=== PATIENT | male | born 1965 | race Caucasian/White ===

== ENCOUNTER 2024-12-26 15:09 | Inpatient (IN) | payer OTHER, SELFPAY ==
--- OUTSIDE RECORDS SUMMARY | 2024-02-13 11:45 | XMS_ITS ---
Author Organization [facility] Address [address] [place] [id number] Care Team Providers Care Prisoner Classification Interviewer Name Role Phone Amber Aquino Primary Care Provider [phone] Amish Batista [phone] REASON FOR VISIT 6 mo f/u HTN & HLD Social History Sex Assigned At : Social History Observation Description Sex Assigned At Male Encounters Encounter Location Date Provider Diagnosis Main [address] [place] [id number] 02/13/2024 Amish Batista Plan Of Treatment Next Appt Details Provider Name:Amber luna, 03/29/2025 03:30:00 PM, [address] [place], [phone], Progress Notes * Josue LEYDOB: [birth year] (59 yo M)Acc No.[id number]:02/13/2024 Medical Note Patient: Azam VNICENTJosue NIEVES Provider: Camila Batista PA-C :1965 A ge:58 Y S ex:Male Date:02/13/2024 Address:[address] [place] [id number] Pcp:Amber Aquino Subjective: * Chief Complaints: * 1 . 6 mo f/u HTN & HLD. * Medical History: Objective: * Vitals: Assessment: Plan: * Treatment: * Billing Information: * Visit Code: * Procedure Codes: * Electronic signature of NICK Hinds on 12/28/2024 at 06:35 AM EDT Sign off status: Pending * Provider: Camila Batista PA-C Date: 0 02/13/2024 Generated for Stephanie calvillo/Nelda/Ashley on: 0 12/28/2024 06:35 AM EDT
--- OUTSIDE RECORDS SUMMARY | 2024-04-21 11:00 | XMS_ITS ---
Author Organization [facility] [place] Address [address] [place] [address] Care Team Providers Care Tailer In Name Role Phone Luis Smith Primary Care Provider Perfecto Sadler Unavailable [phone] Allergies Allergen (clinical drug ingredient) Drug/Non Drug Allergy documented on EMR Reaction Allergy Type Onset Date Status A-Cillin (penicillin) Unknown Drug Allergy Active REASON FOR VISIT CKD 3, HTN, Vitamin D deficiency Medications Medication SIG (Take, Route, Frequency, Duration) Notes Start Date End Date Status Lisinopril 40 MG 1 tablet Orally Once a day for 30 days Active Multi Vitamin - 1 tablet Orally Once a day for 30 day(s) Active Pravastatin Sodium 40 mg 1 tablet DAILY Active Vitamin D 25 MCG (1000 UT) 1 tablet Oral ly Once a day for 30 day(s) 02/16/2020 Active Aspirin 81 mg 1 delayed release ta blet DAILY Active Allopurinol 100 MG 1 tablet Orally Once a day for 90 days 02/16/2020 Active Social History Tobacco Use: Social History Observation Description Date Details (start date - stop date) Never Smoker NA - NA Tobacco Use/Smoking Question Answer Notes Patient is a nonsmoker Vital Signs Weight 186.6 lbs 04/21/2024 Height 5ft 6 in in 04/21/2024 Blood pressure systolic 118 mm Hg 04/21/20 24 Blood pressure diastolic 84 mm Hg 024 BMI 30.11 kg/m2 04/21/2024 Encounters Encounter Location Date Provider Diagnosis [facility] [address] [place] [phone] 04/21/2024 Perfecto Sheets Essential hypertensi on I10 ; CKD stage G3a/A1, GFR 45-59 and albumin creatinine ratio <30 mg/g N18.31 ; Microalbuminuria absent Z78.9 ; Vitamin D deficiency E55.9 ; Hyperuricemia E79.0 and Kidney stone N20.0 Assessments Encounter Date Diagnosis (ICD Code) Assessment Notes Treatment Notes Treatment Clinical Notes Section Notes 04/21/2024 Essential hypertension (ICD-10 - I10) BP at goal. 04/21/2024 CKD stage G3a/A1, GFR 45-59 and albumin creatinine ratio <30 mg/g (ICD-10 - N18.31) Renal function is very stable. Creatinine is 1.58, eGFR is 50. BP and volume status are at goal. No proteinuria present at this time. PTH is WNL. Encouraged pt to continue to increase his water intake. Will have pt discontinue Vit D supplements and decrease TUMs supplementation due to Ca level of 10.3. 04/21/2024 Microalbuminuria absent (ICD-10 - Z78.9) 04/21/2024 Vitamin D deficiency (ICD-10 - E55.9) Will discontinue Vit D supplements at this time due to Calcium level of 10.3. Also advised pt to significantly cut down on his TUMs intake due to borderline elevated calcium. He states that he takes TUMs almost daily due to heartburn, but he is not interested in an H2 gardenia at this time. 04/21/2024 Hyperuricemia (ICD-10 - E79.0) Pt no longer taking allopurinol due to not wanting to take any more medications at this time. He is working on controlling his uric acid levels with diet. He is just coming out of a Gout attack, but does not wish to restart allopurinol at this time. Will follow up uric acid level at next visit. 04/21/2024 Kidney stone (ICD-10 - N20.0) Encouraged pt to increase water consumption to 3 L per day. Plan Of Treatment Treatment Notes Assessment Notes Essential hypertension BP at goal. CKD stage G3a/A1, GFR 45-59 and albumin creatinine ratio <30 mg/g Renal function is very stable. Creatinine is 1.58, eGFR is 50. BP and volume status are at goal. No proteinuria present at this time. PTH is WNL. Encouraged pt to continue to increase his water intake. Will have pt discontinue Vit D supplements and decrease TUMs supplementation due to Ca level of 10.3. Vitamin D deficiency Will discontinue Vit D supplements at this time due to Calcium level of 10.3. Also advised pt to significantly cut down on his TUMs intake due to borderline elevated calcium. He states that he takes TUMs almost daily due to heartburn, but he is not interested in an H2 gardenia at this time. Hyperuricemia Pt no longer taking allopurinol due to not wanting to take any more medications at this time. He is working on controlling his uric acid levels with diet. He is just coming out of a Gout attack, but does not wish to restart allopurinol at this time. Will follow up uric acid level at next visit. Kidney stone Encouraged pt to inc rease water consumption to 3 L per day. Pending Test Test Name Order Date UA (URINALYSIS, COMPLETE) 04/21/2024 MAGNESIUM 04/21/2024 CBC WITH DIFF 04/21/2024 BMP (BASIC MET PANEL - W/GFR) 04/21/2024 MICROALBUMIN with ALB/CREAT RATIO, URINE (MALB)) 04/21/2024 PTH INTACT (PARATHYROID HORMONE) 024 URIC ACID 04/21/2024 VITAMIN D, 25 LEVEL (TOTAL) 04/21/2024 Next Appt Details Follow Up: 1 Year, Reason: Provider Name:Perfecto srinivasan, 04/20/2025 03:00:00 PM, [address] [place] [address], [phone], Progress Notes * Josue LEYDOB: [birth year] (58 yo M)Acc No.[id number]:04/21/2024 Progress Note Patient: Azam Josue MOE Provider: SATYA Ulloa :1965 A ge:58 Y S ex:Male Date:04/21/2024 Address:[address] [place], [place] [phone] Pcp:Luis Smith Check In:02:59 PM ESTCheck O ut:03:25 PM EST Subjective: * Chief Complaints: * C KD 3HTNVitamin D deficiency * HPI: G eneral: Pt presents for a one year follow-up of CKD and HTN. Pt states that he has been feeling well and has no new concerns at this visit. Pt states that he is just getting over a Gout attack. He stopped taking his allopurinol on his own due to wanting to decrease his overall medication intake, and now he is working on managing his Gout with diet. He does not wish to go back on allopurinol at this time. He also states that he takes TUMs almost daily due to heartburn, but is not interested in an H2 gardenia or any other medications at this time. Pt states that he is otherwise feeling well. * ROS: G eneral/Constitutional: Weight Change > 5 pounds in last 6 months d enies. L ightheadedness d enies. C ardiovascular: Orthopnea d enies. S welling of extremities d enies. D yspnea on exertion d enies. S hortness of breath d enies. R espiratory: Difficulty breathing d enies. C ough d enies. ? G astrointestinal: Decreased appetite d enies. N ausea d enies. V omiting d enies. G enitourinary: Dysuria d enies . H ematuria d enies. U rgency?denies. M usculoskeletal: Back pain d enies. A rthralgia d enies. ? S kin: Loss of sensation/numbness d enies. R alondra d enies.? N eurologic: Weakness D enies. D izziness d enies. ? P sychiatric: Insomnia d enies. A nxiety d enies. ? E ndocrine: Polydipsia d enies. P olyuria d enies. ? H ematology: Blood clots d enies. B lood disorder d enies. ? A ll other review of systems negative at this time. * Active Problem List N18.3 Chronic kidney disea se, stage III (moderate) Modified On:02/21/2021W/U Status:confirmed I10 Essential hypertensi on Modified On:04/23/2023W/U Status:confirmed N20.0 Kidney stone on left side Modified On:02/16/2020/U Status:confirmed N20.0 Kidney stone Modified On:04/23/2023/U Status:confirmed N18.3 CKD (chronic kidney disease) stage 3, GFR 30-59 ml/min Modified On:02/21/2021/U Status:confirmed E55.9 Vitamin D deficiency Modified On:04/23/2023/U Status:confirmed N18.31 CKD stage G3a/A1, GF R 45-59 and albumin creatinine ratio <30 mg/g Modified On:04/23/2023/U Status:confirmed * Medical History: * Surgical History: H istory of tonsillectomy * Hospitalization/Major Diagno stic Procedure: k idney stones no stay Er Visit * Family History: F ather: , diagnosed with Diabetes mellitus without mention of complication, type II or unspecified type, not stated as uncontrolled, Other malignant neoplasm of unspecified site. M other: alive. M igrated Family History:: Family history of hyperlipidemia;Father ;. * Social History: T obacco Use: T obacco Use/Smoking P atient is a n onsmoker * Medications: T akingAllopurinol 100 MG Tablet 1 tablet Orally Once a day Aspirin 81 mg delayed release tablet 1 delayed release tablet DAILY Lisinopril 40 MG Tablet 1 tablet Orally Once a day Multi Vitamin - Tablet 1 tablet Orally Once a day Pravastatin Sodium 40 mg tablet 1 tablet DAILY Vitamin D 25 MCG (1000 UT) Tablet 1 tablet Orally Once a day Medication List reviewed and reconciled with the patientTaking Allopurinol 100 MG Tablet 1 tablet Orally Once a day Taking Aspirin 81 mg delayed release tablet 1 delayed release tablet DAILY Taking Lisinopril 40 MG Tablet 1 tablet Orally Once a day Taking Multi Vitamin - Tablet 1 tablet Orally Once a day Taking Pravastatin Sodium 40 mg tablet 1 tablet DAILY Taking Vitamin D 25 MCG (1000 UT) Tablet 1 tablet Orally Once a day Medication List reviewed and reconciled with the patient * Allergies: A -Cillin (penicillin): Allergyno[Allergies Verified] Objective: * Vitals: W t:186.6lbs, Ht: 5ft 6 in, BP:118/84mm Hg, BMI:30.11Index, Ht-cm: 167.64 cm, Wt- k.64 kg. * Examination: G eneral Examinations: GENERAL APPEARANCE: i n no acute distress, well developed, well nourished. ENT: n ormocephalic, atraumatic. ORAL CAVITY: m ucosa moist. NECK: n sharita supple, no jugular venous distention. LUNGS: S ymmetrical/respiration rhythm and depth normal, clear to auscultation bilaterally. CARDIO: r egular rate and rhythm, no murmurs, S1, S2 normal. ABDOMEN: s oft, nontender Bowel sounds normal. MUSCULOSKELETAL G ait and station normal, no swelling or deformity. SKIN: w arm and dry, no rashes. EXTREMITIES: n o clubbing, cyanosis, or edema. NEUROLOGIC: a lert and oriented, no focal deficit. PSYCH: a lert, oriented, judgement and insight good, speech clear. Assessment: * Assessment: 1. C KD stage G3a/A1, GFR 45-59 and albumin creatinine ratio <30 mg/g - N18.31 (Primary)?2. E ssential hypertension - I10 3 . M icroalbuminuria absent - Z78.9 4 . V itamin D deficiency - E55.9 5 . H yperuricemia - E79.0 6 . K colby stone - N20.0 Plan: * Treatment: 2. E ssential hypertension Notes: BP at goal. 3. V itamin D deficiency Notes: Will discontinue Vit D supplements at this time due to Calcium level of 10.3. Also advised pt to significantly cut down on his TUMs intake due to borderline elevated calcium. He states that he takes TUMs almost daily due to heartburn, but he is not interested in an H2 gardenia at this time. 4. H yperuricemia Notes: Pt no longer taking allopurinol due to not wanting to take any more medications at this time. He is working on controlling his uric acid levels with diet. He is just coming out of a Gout attack, but does not wish to restart allopurinol at this time. Will follow up uric acid level at next visit. 5. Jyotsna larkin Notes: Encouraged pt to increase water consumption to 3 L per day. * Procedure Codes: * Follow Up: 1 Year * * Electronically signed by Max Sheets , DESIRAE-ELECTRONIC FIELD SERVICE ENGINEER, NON GARMENT SEWING MACHINE OPERATOR.ELECTRONIC FIELD SERVICE [id number] on 04/21/2024 at 05:05 PM EST Sign off status: Completed Visit Status: C HK (Check Out) true * Provider: Valerio Sheets APRN-ABE Date: 06/21/2023 Generated for Stephanie calvillo/Dick on: 0 12/28/2024 06:34 AM EDT History and Physical Notes * HPI (History of Present Illness) Category Sub-Category Detail Notes Category Not es General Pt presents for a one year follow-up of CKD and HTN. Pt states that he has been feeling well and has no new concerns at this visit. Pt states that he is just getting over a Gout attack. He stopped taking his allopurinol on his own due to wanting to decrease his overall medication intake, and now he is working on managing his Gout with diet. He does not wish to go back on allopurinol at this time. He also states that he takes TUMs almost daily due to heartburn, but is not interested in an H2 gardenia or any other medications at this time. Pt states that he is otherwise feeling well. Examination Category Sub-Category Detail Notes Category Not es General Examinations GENERAL APPEARANCE: in no a cute distress, well developed, well nourished ENT: normocephalic, atrau matic NECK: neck supple, no jugu lar venous distention CARDIO: regular rate and rhy thm, no murmurs, S1, S2 normal LUNGS: Symmetrical/respirat ion rhythm and depth normal, clear to auscultation bilaterally ABDOMEN: soft, nontender Bowel sounds normal NEUROLOGIC: alert and oriented, no focal deficit SKIN: warm and dry, no halie hes EXTREMITIES: no clubbing, cyanosi s, or edema MUSCULOSKELETAL: Gait and station nor mal, no swelling or deformity PSYCH: alert, oriented, melita gement and insight good, speech clear ORAL CAVITY: mucosa moist
[2024-12-26 15:12] VITALS: BP 134/88; PULSE 70; TEMP 36.4; O2SAT 97; BMI 26.6
--- NOTE | 2024-12-26 15:32 | CT_ITS ---
[address] [address] Patient Name: LUCIANO TREADWELL MRN: [id number] date: 1965 Sex: M Assigned Patient Location: ER Current Patient Location: .[facility] Accession/Order Number: [id number] Exam Date: 12/26/2024 16:15 Report Date: 12/26/2024 16:21 At the request of: ROSA JOVEL NP Procedure: CT abdomen pelvis wo con CT abdomen pelvis wo con 12/26/2024 3:51 PM SIGNS AND SYMPTOMS: Left flank pain, history of kidney stones TECHNIQUE: Multidetector ct axial images of the abdomen and pelvis were obtained without IV contrast. Multiplanar reformats were performed and reviewed to further define anatomy and possible pathology. CT was performed with one or more of the following dose reduction techniques: Automated exposure control, adjustment of the mA and/or kV according to patient size, or use of iterative reconstruction technique. COMPARISON: 01/02/2020 FINDINGS: Lower Chest: There is linear scarring in the left lung base. ABDOMEN: Liver: Within normal limits. Bile Ducts: Normal caliber. Gallbladder: No calcified gallstones. Normal caliber wall. Pancreas: Within normal limits. Spleen: Within normal limits. Adrenals: Within normal limits. Kidneys: Multiple radiodense renal stones are present measuring 6 mm in greatest dimension on the right and 4 mm in greatest dimension on the left. There is no hydronephrosis. Pelvis: Reproductive Organs: No pelvic masses. Ureters: There is a 4 mm stone in the distal left ureter just above the left ureterovesical junction. There is fat stranding along a mildly dilated ureter above this. Bladder: Within normal limits. Bowel: Uncomplicated colonic diverticula are noted. There is a normal appendix in the right lower quadrant. No bowel obstruction. Mesenteric Lymph Nodes: No enlarged mesenteric lymph nodes. Peritoneum: No ascites or free air, no fluid collection. Vessels: within normal limits Retroperitoneum: Within normal limits. Abdominal Wall: Within normal limits. Bones: Degenerative changes are noted in the lumbar spine and sacroiliac joints. CT/CT abdomen pelvis wo con IMPRESSION: No bowel obstruction. There is no hydronephrosis. There is a 4 mm stone in the distal left ureter just above the left ureterovesical junction. There is fat stranding along a mildly dilated ureter above this. Uncomplicated colonic diverticula are noted. Impression dictated by: Phong Pérez M.D. 12/26/2024 4:21 PM Dictation Location: [place] [address] Electronically authenticated by: [id number] Y Date: 12/26/2024 16:21
[2024-12-26 15:40] LABS: Hematocrit 44.2 % (42.0-54.0); Hemoglobin 15.0 g/dL (14.0-18.0); Immature Granulocytes Abs Auto 0.08 10^3/uL (0.00-0.03); Immature Granulocytes Pct Auto 0.6 % (0.0-0.5); Lymphocytes Absolute Auto 1.2 10^3/uL (1.2-3.8); Mean Corpuscular HGB Conc 33.9 g/dL (29.9-35.2); Mean Corpuscular Hemoglobin 30.1 pg (25.9-34.0); Mean Corpuscular Volume 88.6 fL (80.0-94.0); Platelet Count 259 10^3/uL (150-450); Red Blood Count 4.99 10^6/uL (4.70-6.10); White Blood Count 14.1 10^3/uL (4.0-11.0)
[2024-12-26 15:41] LABS: Glucose Urine UA NEGATIVE (NEGATIVE)
[2024-12-26 15:54] LABS: Alanine Aminotransferase 39 U/L (16-63); Albumin Globulin Ratio 1.3; Albumin Level 3.9 g/dL (3.4-5.0); Alkaline Phosphatase 68 U/L (46-116); Anion Gap 17.9; Aspartate Amino Transferase 19 U/L (15-37); Blood Urea Nitrogen 24.0 mg/dL (7.0-18.0); Calcium 9.0 mg/dL (8.5-10.1); Carbon Dioxide 23.3 mmol/L (21.0-32.0); Chloride 101 mmol/L (98-107); Estimated GFR (African America 35 (>=60 mL/min/1.73m^2); Estimated GFR (Non-African Ame 29 (>=60 mL/min/1.73m^2); Globulin 3.0 g/dL; Glucose 114 mg/dL (74-106); Potassium 4.2 mmol/L (3.5-5.1); Sodium 138 mmol/L (136-145); Total Protein 6.9 g/dL (6.4-8.2)
--- NOTE | 2024-12-26 15:55 | ED.GENADUL1 ---
HPI HPI - General Adult General Chief complaint: Abdominal Pain Stated complaint: URINARY ISSUES, L SIDED ABDOMINAL PAIN Time Seen by Provider: 12/26/24 15:28 Source: patient Mode of arrival: walk-in History of Present Illness HPI narrative: Patient is a 59-year-old male who presents to the emergency department today for evaluation concerns for flank and abdominal pain. He states he woke up this morning with pain to his left flank region that radiates to the left side of his abdomen. He denies any pain on arrival to the ER. He states he has a history of kidney stones reports his vertigo similar to that. He reports when the pain is present he does have some nausea without vomiting. No urinary symptoms. Additionally no fever/chills, chest pain, shortness of breath. Related Data Home Medications ?Medication ?Instructions ?Recorded ?Confirmed lisinopril 40 mg tablet 40 mg PO DAILY 12/26/24 12/26/24 pravastatin 80 mg tablet 80 mg PO DAILY 12/26/24 12/26/24 Allergies Allergy/AdvReac Type Severity Reaction Status Date / Time Penicillins Allergy Severe Hives Verified 12/26/24 15:[address] [facility] Medical History (Updated 12/26/24 @ 17:25 by Gloria Mcgiure NP) Stage 3 chronic kidney disease ?N18.30 - Chronic kidney disease, stage 3 unspecified (ICD-10) Social History Little interest or pleasure in doing things: not at all Feeling down, depressed, or hopeless: not at all Exam Narrative Exam Narrative: Constituational: Awake/ alert, no apparent distress, well hydrated HENMT: normocephalic, external ears normal, moist oral mucous membranes and oropharynx normal Eyes: EOMI and conjunctivae normal Neck: ROM intact Chest: inspection of chest normal Respiratory: Normal respiratory effort, clear to auscultation bilaterally Cardio: regular rate and regular rhythm GI: soft to palpation and non-tender Back: nontender, no CVA tenderness MSK: ROM intact, +NVI Skin: no rashes or petechiae Neuro: no focal deficits Psych: mental status grossly normal Constitutional Vital Signs, click to edit/add: Last Vital Signs Temp 97.5 F L 12/26/24 15:12 Pulse 70 12/26/24 15:12 Resp 18 12/26/24 15:12 BP 134/88 12/26/24 15:12 Pulse Ox 97 12/26/24 15:12 O2 Del Method Room Air 12/26/24 15:12 Course Vital Signs Vital signs: Vital Signs Temperature 97.5 F L 12/26/24 15:12 Pulse Rate 70 12/26/24 15:12 Respiratory Rate 18 12/26/24 15:12 Blood Pressure 134/88 12/26/24 15:12 Pulse Oximetry 97 12/26/24 15:12 Oxygen Delivery Method Room Air 12/26/24 15:12 Temperature 97.5 F L 12/26/24 15:12 Pulse Rate 70 12/26/24 15:12 Respiratory Rate 18 12/26/24 15:12 Blood Pressure 134/88 12/26/24 15:12 Pulse Oximetry 97 12/26/24 15:12 Oxygen Delivery Method Room Air 12/26/24 15:12 Medical Decision Making MDM Narrative Medical decision making narrative: Patient is a nontoxic-appearing 59-year-old male who presented to the emergency department today for evaluation concerns for left-sided flank and abdominal pain with history of kidney stones with reported pain feeling similar to kidney stones in the past. Initial examination vital signs overall stable. No acute abdominal findings on exam. And patient has been pain-free since arrival to the ER. Labs noted for mild leukocytosis with WBCs 14 otherwise no significant anemia or thrombocytopenia. Electrolytes including hepatic function stable. Renal function with elevated creatinine of 2.33. In discussing this with the patient he is very confused and does not believe he has any history of kidney disease however endorses he sees a planning associate out of [place]. Patient was able to pull up labs from [facility] with most recent lab work from 04/07/25 with noted creatinine 1.5, BUN 27 at that time. Historically patient is on lisinopril and there is some question if there is hydrochlorothiazide in conjunction with the lisinopril which the patient is not able to answer. CT imaging of abdomen and pelvis does show 4 mm left kidney stone above the UVJ with a mildly dilated ureter. UA is negative for UTI. Patient was reevaluated multiple times and had no significant changes in condition. He continues to be pain-free and well-appearing in addition to hemodynamically stable. Clinical impression kidney stone and IVAN. Did speak with Dr. Weinstein (Urology) [phone] regarding patient's condition, labs, image results, treatments provided by the emergency department recommends admit patient for IVAN and to hydrate and reevaluate renal function. Urology to follow along and decide if procedure necessary tomorrow vs outpatient follow up. Subsequently spoke with Dr. Saenz (hospitalist) [phone]. The patient's condition, labs, image results, treatments provided by the emergency department, and recommendations from urology -> accepts patient for admission. Discussed the above findings and recommendations with the patient. He additionally is agreeable with the plan to be admitted for further care of the above. Medical Records Medical records reviewed: Yes I reviewed the patient's medical records Lab Data Lab results reviewed: Yes I reviewed the patient's lab results Labs: Lab Results 12/26/24 12/26/24 Range/Units 15:25 15:30 WBC 14.1 H (4.0-11.0) 10^3/uL RBC 4.99 (4.70-6.10) 10^6/uL Hgb 15.0 (14.0-18.0) g/dL Hct 44.2 (42.0-54.0) % MCV 88.6 (80.0-94.0) fL MCH 30.1 (25.9-34.0) pg MCHC 33.9 (29.9-35.2) g/dL RDW 13.1 (11.0-15.0) % Plt Count 259 (150-450) 10^3/uL MPV 10.1 (9.5-13.5) fL Neut % (Auto) 82.3 H (43.0-75.0) % Lymph % (Auto) 8.1 L (20.5-60.0) % [place] % (Auto) 7.3 (1.7-12.0) % Eos % (Auto) 1.3 (0.9-7.0) % Baso % (Auto) 0.4 (0.2-2.0) % Neut # (Auto) 11.6 H (1.4-6.5) 10^3/uL Lymph # (Auto) 1.2 (1.2-3.8) 10^3/uL [place] # (Auto) 1.0 H (0.3-0.8) 10^3/uL Eos # (Auto) 0.2 (0.0-0.7) 10^3/uL Baso # (Auto) 0.1 (0.0-0.1) 10^3/uL Abs Immat Gran (auto) 0.08 H (0.00-0.03) 10^3/uL Imm/Tot Granulo (auto) 0.6 H (0.0-0.5) % Sodium 138 (136-145) mmol/L Potassium 4.2 (3.5-5.1) mmol/L Chloride 101 (98-107) mmol/L Carbon Dioxide 23.3 (21.0-32.0) mmol/L Anion Gap 17.9 BUN 24.0 H (7.0-18.0) mg/dL Creatinine 2.33 H (0.70-1.30) mg/dL Est GFR ( Amer) 35 L (>=60 mL/min/1.73m^2) Est GFR (Non-Af Amer) 29 L (>=60 mL/min/1.73m^2) BUN/Creatinine Ratio 10.3 Glucose 114 H (74-106) mg/dL Calcium 9.0 (8.5-10.1) mg/dL Total Bilirubin 0.3 (0.2-1.0) mg/dL AST 19 (15-37) U/L ALT 39 (16-63) U/L Alkaline Phosphatase 68 (46-116) U/L Total Protein 6.9 (6.4-8.2) g/dL Albumin 3.9 (3.4-5.0) g/dL Globulin 3.0 g/dL Albumin/Globulin Ratio 1.3 Urine Color Lt. yellow (YELLOW) Urine Clarity Clear (CLEAR) Urine pH 6.0 (5.0-9.0) Ur Specific [place] 1.010 (1.005-1.025) Urine Protein Negative (NEG/TRACE) mg/dL Urine Glucose (UA) Negative (NEGATIVE) mg/dL Urine Ketones Negative (NEGATIVE) mg/dL Urine Occult Blood Moderate A (NEGATIVE) Urine Nitrite Negative (NEGATIVE) Urine Bilirubin Negative (NEGATIVE) Urine Urobilinogen 0.2 (0.2-1.0) EU/dL Ur Leukocyte Esterase Negative (NEGATIVE) Urine RBC 5-10 A (0-2) #/HPF Urine WBC 0-2 A (NONE SEEN) #/HPF Ur Squamous Epith Cells Rare (NONE/RARE) #/LPF Urine Crystals None seen (None Seen) #/HPF Urine Bacteria Trace A (NONE SEEN) #/HPF Urine Casts None seen (NONE SEEN) #/LPF Urine Mucus Trace A (NONE SEEN) Ur Culture Indicated? No Imaging Data CT scan - abdomen: Attestation: I have reviewed the pertinent imaging results. Radiologist's impression: ITS Impressions Abdomen/Pelvis CT 12/26/24 15:32 IMPRESSION: No bowel obstruction. There is no hydronephrosis. There is a 4 mm stone in the distal left ureter just above the left ureterovesical junction. There is fat stranding along a mildly dilated ureter above this. Uncomplicated colonic diverticula are noted. Impression dictated by: Phong Pérez M.D. 12/26/2024 4:21 PM Dictation Location: [place] [address] Electronically authenticated by: [id number] Y Date: 12/26/2024 16:21 Discharge Plan Discharge Patient Disposition: Still a Patient
[2024-12-26 15:59] LABS: Cast Seen? NONE SEEN #/LPF (NONE SEEN); Crystals Seen? None Seen #/HPF (None Seen); Urine Culture Indicated NO
[2024-12-26] MEDS: 0.9 % SODIUM CHLORIDE 1,000 ML 1000 ML IV (18:14)
[2024-12-26 19:29] VITALS: BP 136/89; PULSE 64; TEMP 36.6; O2SAT 96; BMI 30.3
[2024-12-26] MEDS: LEVOFLOXACIN 500 MG TABLET 250 MG PO (20:36)
[2024-12-26] MEDS: 0.9 % SODIUM CHLORIDE 1,000 ML 150 ML IV (20:36)
[2024-12-26] MEDS: TAMSULOSIN HCL 0.4 MG CAPSULE PO (20:36)
[2024-12-26] MEDS: ACETAMINOPHEN 325 MG TABLET 650 MG PO (20:46)
[2024-12-27] VITALS: BP 143/86; PULSE 72; TEMP 36.3; O2SAT 93
[2024-12-27] MEDS: ACETAMINOPHEN 325 MG TABLET 650 MG PO (01:24)
[2024-12-27] MEDS: 0.9 % SODIUM CHLORIDE 1,000 ML 150 ML IV (03:23)
[2024-12-27 04:00] VITALS: BP 127/80; PULSE 73; TEMP 36.6; O2SAT 95
[2024-12-27 06:57] LABS: Hematocrit 41.8 % (42.0-54.0); Hemoglobin 13.7 g/dL (14.0-18.0); Immature Granulocytes Abs Auto 0.05 10^3/uL (0.00-0.03); Immature Granulocytes Pct Auto 0.5 % (0.0-0.5); Lymphocytes Absolute Auto 1.2 10^3/uL (1.2-3.8); Mean Corpuscular HGB Conc 32.8 g/dL (29.9-35.2); Mean Corpuscular Hemoglobin 29.2 pg (25.9-34.0); Mean Corpuscular Volume 89.1 fL (80.0-94.0); Platelet Count 216 10^3/uL (150-450); Red Blood Count 4.69 10^6/uL (4.70-6.10); White Blood Count 10.5 10^3/uL (4.0-11.0)
[2024-12-27 07:16] LABS: Anion Gap 16.6; Blood Urea Nitrogen 30.0 mg/dL (7.0-18.0); Calcium 8.1 mg/dL (8.5-10.1); Carbon Dioxide 21.6 mmol/L (21.0-32.0); Chloride 107 mmol/L (98-107); Creatine Kinase 59 U/L (39-308); Estimated GFR (African America 23 (>=60 mL/min/1.73m^2); Estimated GFR (Non-African Ame 19 (>=60 mL/min/1.73m^2); Glucose 109 mg/dL (74-106); Potassium 4.2 mmol/L (3.5-5.1); Sodium 141 mmol/L (136-145)
[2024-12-27 07:50] VITALS: BP 155/89; PULSE 80; TEMP 36.4; O2SAT 95
[2024-12-27] MEDS: LEVOFLOXACIN 500 MG TABLET 250 MG PO (08:17)
[2024-12-27] MEDS: TAMSULOSIN HCL 0.4 MG CAPSULE PO (08:17)
--- NOTE | 2024-12-27 09:07 | PM.HP ---
HPI H&P: HPI History of Present Illness Chief complaint: URINARY ISSUES, L SIDED ABD PAIN, IVAN, KIDNEY STON Narrative: Mr. Ley is a 59-year-old gentleman who came in with left flank pain. Patient was found to have 4 mm left ureteral stone with hydroureter. Patient also was found to have an element of kidney failure. Patient has had CKD. Unknown baseline up until he showed up today on his iPhone today. His baseline creatinine is 1.56 in March 2024. Emergency room physician had communicated with urologist Dr. Main who recommended admission to [place] for IV fluid infusion and monitoring of his kidney function. This morning his kidney function is worse. I spoke with Dr. Main who is recommending patient to have cystoscopy and stent. This could not be done at [place] this Saturday therefore patient will be transferred to [facility] to have the procedure done this afternoon. Patient denies any chest pain, cough or congestion. Opioid HPI Opioid Management Most Recent Pain and Opioid Data: Last Pain Scale 4 Today, 07:51 Last Pain Assessment 12/26/24, 21:00 Last MAR Pain Assessment 12/26/24, 20:46 Last ORT Total Score 0 12/26/24, 19:29 Last ORT Risk Category Low Risk 12/26/24, 19:29 Review of Systems ROS Status of ROS 10 or more systems reviewed and unremarkable except as noted in history and below [facility] Medical History (Updated 12/27/24 @ 09:09 by Marian Saenz MD) Hyperlipidemia ?E78.5 - Hyperlipidemia, unspecified (ICD-10) Hypertension ?I10 - Essential (primary) hypertension (ICD-10) Stage 3 chronic kidney disease ?N18.30 - Chronic kidney disease, stage 3 unspecified (ICD-10) Surgical History (Updated 12/26/24 @ 19:39 by Katja Borrego RN) Hx of tonsillectomy ?Z90.89 - Acquired absence of other organs (ICD-10) Family History (Updated 12/26/24 @ 19:40 by Katja Borrego RN) Father Family history of cancer Family history of diabetes mellitus Family history of myocardial infarction Social History (Updated 12/26/24 @ 19:41 by Katja Borrego RN) Within the past year, how often did you have a drink containing alcohol: monthly or less Within the past year, how many standard drinks containing alcohol did you have on a typical day: 1 or 2 Within the past year, how often did you have six or more drinks on one occasion: never Total score: 0 Score interpretation: A score less than 4 is consistent with normal alcohol consumption. Smoking status: Never smoker Non-prescribed substance use: denies use Highest level of school completed/degree received: some college, no degree Are you now , , , , never or living with a partner: In a typical week, how many times do you talk on the telephone with family, friends, or neighbors: 3 or more times per week How often do you get together with friends or relatives: 3 or more times per week Little interest or pleasure in doing things: not at all Feeling down, depressed, or hopeless: not at all Feel stressed/tense/nervous/anxious/difficulty sleeping: not at all Do you think of yourself as: straight/heterosexual Gender Identity: male Meds Home Medications and Allergies Home Medications ?Medication ?Instructions ?Recorded ?Confirmed ?Type lisinopril 40 mg tablet 40 mg PO DAILY 12/26/24 12/26/24 History pravastatin 80 mg tablet 80 mg PO DAILY 12/26/24 12/26/24 History Allergies Allergy/AdvReac Type Severity Reaction Status Date / Time Penicillins Allergy Severe Hives Verified 12/26/24 15:17 Exam Narrative Exam Narrative: [pt is awake and alert. oriented to place, time and person HEENT: [place] conjunctiva and NL buccal mucosa Neck: Supple, no tenderness Endocrine: No Thyromegaly. Vascular: No JVD or carotid bruit. Lymphatic: No cervical lymphadenopathy. Chest: CTA no DTP. Heart RRR, no extra sound or murmur. Abd: Soft, no tenderness, no rebound and no rigidity. Increase abd girth therefore clinically I could not exclude the possibility of intra abd mass or organomegaly. Mild tenderness in the left flank. LE: No cyanosis or clubbing, no varices or edema. Neuro: A A O. Nl speech, comprehension and attention. Nl and symetrical motor and tone examination through out. []] Constitutional Vital Signs, click to edit/add: Last Vital Signs Temp 97.6 F 12/27/24 07:50 Pulse 80 12/27/24 07:50 Resp 20 12/27/24 07:50 BP 155/89 H 12/27/24 07:50 Pulse Ox 95 12/27/24 07:50 O2 Del Method Room Air 12/27/24 07:50 Results Labs Labs: Short CBC 12/26/24 12/27/24 Range/Units 15:30 06:30 WBC 14.1 H 10.5 (4.0-11.0) 10^3/uL Hgb 15.0 13.7 L (14.0-18.0) g/dL Hct 44.2 41.8 L (42.0-54.0) % Plt Count 259 216 (150-450) 10^3/uL BMP 12/26/24 12/27/24 15:30 06:30 Sodium 138 141 Potassium 4.2 4.2 Chloride 101 107 Carbon Dioxide 23.3 21.6 BUN 24.0 H 30.0 H Creatinine 2.33 H 3.40 H Glucose 114 H 109 H Calcium 9.0 8.1 L Cardiac Enzymes 12/27/24 Range/Units 06:30 Total Creatine Kinase 59 (39-308) U/L Liver Function 12/26/24 Range/Units 15:30 Total Bilirubin 0.3 (0.2-1.0) mg/dL AST 19 (15-37) U/L ALT 39 (16-63) U/L Alkaline Phosphatase 68 (46-116) U/L Albumin 3.9 (3.4-5.0) g/dL Urine 12/26/24 Range/Units 15:25 Urine Color Lt. yellow (YELLOW) Urine Clarity Clear (CLEAR) Urine pH 6.0 (5.0-9.0) Ur Specific [place] 1.010 (1.005-1.025) Urine Protein Negative (NEG/TRACE) mg/dL Urine Glucose (UA) Negative (NEGATIVE) mg/dL Assessment and Plan Assessment and Plan (1) IVAN (acute kidney injury): (2) Calculus of kidney: (3) CKD (chronic kidney disease): Plan Acute on chronic kidney failure. Baseline creatinine is 1.56 in March 2024. Patient follows up with nephrology once a year Obstructing left ureteral stone with hydroureter Patient is on lisinopril 40 mg daily at home which may be contributing to his acute on chronic kidney failure. Patient did not receive lisinopril here in the hospital Patient is on pravastatin 80 mg daily but his CPK is normal. No evidence of rhabdomyolysis causing kidney failure Baseline creatinine 1.54 in March 2024. Patient follows up with nephrology once a year Acute component could be caused by obstructing left ureteral stone UA showed few RBC and WBC. Kidney function is worse this morning despite aggressive IV fluid infusion overnight. Patient had received normal saline at 150 an hour since admission to the floor. Urologist Dr. Main is recommending cystoscopy and stent. Hopefully that will improve his kidney function. This could not be done here at [place] therefore patient will be transferred to [facility] to have this procedure done this afternoon. Patient will be seen by urology, nephrology and hospitalist there.
--- NOTE | 2024-12-27 09:12 | PM.DS1 ---
DS: Providers Provider Date of admission: 12/26/24 19:17 Primary care physician: Amber Aquino NP Consults: 12/26/24 20:03 Consult to Urology Routine Consulting Provider: Josh King Reason for consultation: Ureter stone DS: Diagnosis Discharge Diagnosis (1) IVAN (acute kidney injury): (2) Calculus of kidney: (3) CKD (chronic kidney disease): Plan As listed above and others that are not listed DS: Summary Hospital Course Hospital Course: Mr. Ley is a 59-year-old gentleman who came in with left flank pain and was found to have the following Acute on chronic kidney failure. Baseline creatinine is 1.56 in March 2024. Patient follows up with nephrology once a year Obstructing left ureteral stone with hydroureter Patient is on lisinopril 40 mg daily at home which may be contributing to his acute on chronic kidney failure. Patient did not receive lisinopril here in the hospital Patient is on pravastatin 80 mg daily but his CPK is normal. No evidence of rhabdomyolysis causing kidney failure Baseline creatinine 1.54 in March 2024. Patient follows up with nephrology once a year Acute component could be caused by obstructing left ureteral stone UA showed few RBC and WBC. Kidney function is worse this morning despite aggressive IV fluid infusion overnight. Patient had received normal saline at 150 an hour since admission to the floor. Urologist Dr. Main is recommending cystoscopy and stent. Hopefully that will improve his kidney function. This could not be done here at [place] therefore patient will be transferred to [facility] to have this procedure done this afternoon. Patient will be seen by urology, nephrology and hospitalist there. Time Spent with Patient Time attestation: Total time spent providing and/or coordinating discharge services: Exam Constitutional Vital Signs, click to edit/add: Last Vital Signs Temp 97.6 F 12/27/24 07:50 Pulse 80 12/27/24 07:50 Resp 20 12/27/24 07:50 BP 155/89 H 12/27/24 07:50 Pulse Ox 95 12/27/24 07:50 O2 Del Method Room Air 12/27/24 07:50 DS: Data Data Completed and Pending Labs on day of discharge: Labs from last 24 hours 12/27/24 12/26/24 12/26/24 06:30 15:30 15:25 WBC 10.5 14.1 H RBC 4.69 L 4.99 Hgb 13.7 L 15.0 Hct 41.8 L 44.2 MCV 89.1 88.6 MCH 29.2 30.1 MCHC 32.8 33.9 RDW 13.1 13.1 Plt Count 216 259 MPV 10.2 10.1 Neut % (Auto) 77.8 H 82.3 H Lymph % (Auto) 11.7 L 8.1 L [place] % (Auto) 7.1 7.3 Eos % (Auto) 2.6 1.3 Baso % (Auto) 0.3 0.4 Neut # (Auto) 8.2 H 11.6 H Lymph # (Auto) 1.2 1.2 [place] # (Auto) 0.7 1.0 H Eos # (Auto) 0.3 0.2 Baso # (Auto) 0.0 0.1 Abs Immat Gran (auto) 0.05 H 0.08 H Imm/Tot Granulo (auto) 0.5 0.6 H Sodium 141 138 Potassium 4.2 4.2 Chloride 107 101 Carbon Dioxide 21.6 23.3 Anion Gap 16.6 17.9 BUN 30.0 H 24.0 H Creatinine 3.40 H 2.33 H Est GFR ( Amer) 23 L 35 L Est GFR (Non-Af Amer) 19 L 29 L BUN/Creatinine Ratio 8.8 10.3 Glucose 109 H 114 H Calcium 8.1 L 9.0 Total Bilirubin 0.3 AST 19 ALT 39 Alkaline Phosphatase 68 Total Creatine Kinase 59 Total Protein 6.9 Albumin 3.9 Globulin 3.0 Albumin/Globulin Ratio 1.3 Urine Color Lt. yellow Urine Clarity Clear Urine pH 6.0 Ur Specific [place] 1.010 Urine Protein Negative Urine Glucose (UA) Negative Urine Ketones Negative Urine Occult Blood Moderate A Urine Nitrite Negative Urine Bilirubin Negative Urine Urobilinogen 0.2 Ur Leukocyte Esterase Negative Urine RBC 5-10 A Urine WBC 0-2 A Ur Squamous Epith Cells Rare Urine Crystals None seen Urine Bacteria Trace A Urine Casts None seen Urine Mucus Trace A Ur Culture Indicated? No Discharge Plan Discharge Disposition: [facility]
[2024-12-27] MEDS: OXYCODONE HCL 5 MG TABLET PO (09:21)
--- NOTE | 2024-12-27 09:38 | PM.EN ---
Event Note Event Note: I called my colleague Dr. St and discussed the case with him. He excepted him to be admitted at [facility] under his care to facilitate urological intervention.
--- NOTE | 2024-12-27 10:32 | PC.NURSE ---
Report called to Silvia RICHARDS at [facility] regarding transfer. Informed ambulance pharmacy picking technician scheduled for 11:00 am
--- OUTSIDE RECORDS SUMMARY | 2024-12-28 06:35 | XMS_ITS | Patient Health Record ---
Author Organization [facility] vices Address [address] [place] [address] [address] [place] [place] [id number] Care Team Providers Care Talent Consultant Name Role Phone Amber Aquino Primary Care Provider Amish Batista Unavailable [phone] Allergies Allergen (clinical drug ingredient) Drug/Non Drug Allergy documented on EMR Reaction Allergy Type Onset Date Status amoxicillin Amoxicillin Rash Drug Allergy Act obdulio Substance with penicillin structure and antibacterial mechanism of action (substance) Penicillins Unknown Drug Allergy Active Results Component Value Reference Range Notes LIPID PANEL WITH REFLEX TO D IRECT LDL Reviewed date:04/08/2024 08:53:56 AM Interpretation: Performing Lab: Notes/Report: CHOLESTEROL 156 100-199 mg/dL TRIGLYCERIDES 197 20-149 mg/dL VLDL-CHOL, CALCULATED 39 <30 mg/dL HDL-CHOL 33 >=40 mg/dL LDL-CHOL, CALCULATED 84 <130 mg/dL ADULT LDL CHOLESTEROL CLASSIFICATION <100mg/dL Optima l 100-129 Near/A estefanía Optimal 130-159mg/dL Border line High >160mg/dL High Risk Desirable range <100 mg/dL for patients with CHD or diabetes and <70 mg/dL for diabetic patients with known heart disease. Direct LDL is recommended for patients with triglycerides >400. LDL/HDL 2.5 <5.0 LDL/HDL RATIO MALE FEMALE below average risk <2.3 <2.3 average risk <5.0 <4.1 moderate risk <7.1 <5.6 high risk >7.1 >5.6 CHOL/HDL 4.7 2.0-4.5 COMPREHENSIVE METABOLIC PANE L WITH GFR Reviewed date:04/08/2024 08:55:56 AM Interpretation: Performing Lab: Notes/Report: GLUCOSE 106 70-100 mg/dL BUN 28 6-20 mg/dL CALCIUM 9.7 8.6-10.5 mg/dL CREATININE, BLOOD 1.53 0.67-1.30 mg/dL eGFR (2020 CKD-EPI) 52 >59 mL/min/1.73m2 The NKF-ASN recommends use of cystatin C to confirm eGFR in adults at risk for CKD. Cystatin C can be used alone or paired with repeat creatinine measurement to increase the accuracy of estimated GFR. SODIUM 141 135-148 mmol/L POTASSIUM 4.9 3.5-5.4 mmol/L CHLORIDE 101 96-107 mmol/L CO2 28 18-32 mmol/L ANION GAP 12 7-16 mmol/L T. BILIRUBIN 0.6 <1.3 mg/dL ALK PHOS 72 39-118 U/L AST-SGOT 37 9-50 U/L ALT-SGPT 47 5-41 U/L T. PROTEIN 7.0 6.0-8.3 g/dL ALBUMIN 4.5 3.5-5.2 g/dL UNLESS OTHERWISE INDICATED, ALL TESTING PERFORMED AT: [employer] [address] [place] [address] PAYMENT ANALYST: GABRIELA TOLEDO M.D. CLIA NUMBER [id number] CAP ACCREDITATION AUID [id number] Changes in testing location may be associated with reference range changes for a number of analytes. Please review reference intervals carefully. Creatine Kinase (Not yet rev iewed by provider) Interpretation: Performing Lab: Notes/Report: [facility] , Creatine Kinase 59 39-308 U/L Performing Lab: see note ML - [facility] LB Complete Blood Count Auto Di ff (Not yet reviewed by provider) Interpretation: Performing Lab: Notes/Report: [facility] , White Blood Count 10.5 4.0-11.0 10 3/uL Red Blood Count 4.69 4.70-6.10 10 6/uL Hemoglobin 13.7 14.0-18.0 g/dL Hematocrit 41.8 42.0-54.0 % Mean Corpuscular Volume 89.1 80.0-94.0 fL Mean Corpuscular Hemoglobin 29.2 25.9-34.0 pg Mean Corpuscular HGB Conc 32.8 29.9-35.2 g/dL Red Cell Distribution Width 13.1 11.0-15.0 % Platelet Count 216 150-450 10 3/uL Mean Platelet Volume 10.2 9.5-13.5 fL Neutrophils Percent Auto 77.8 43.0-75.0 % Lymphocytes Percent Auto 11.7 20.5-60.0 % Monocytes Percent Auto 7.1 1.7-12.0 % Eosinophils Percent Auto 2.6 0.9-7.0 % Basophils Percent Auto 0.3 0.2-2.0 % Immature Granulocytes Pct Auto 0.5 0.0-0.5 % Neutrophils Absolute Auto 8.2 1.4-6.5 10 3/uL Lymphocytes Absolute Auto 1.2 1.2-3.8 10 3/uL Monocytes Absolute Auto 0.7 0.3-0.8 10 3/uL Eosinophils Absolute Auto 0.3 0.0-0.7 10 3/uL Basophils Absolute Auto 0.0 0.0-0.1 10 3/uL Immature Granulocytes Abs Auto 0.05 0.00-0.03 10 3/uL Performing Lab: see note - [facility] LB Basic Metabolic Panel (Not y et reviewed by provider) Interpretation: Performing Lab: Notes/Report: [facility] , Sodium 141 136-145 mmol/L Potassium 4.2 3.5-5.1 mmol/L Chloride 107 98-107 mmol/L Carbon Dioxide 21.6 21.0-32.0 mmol/L Anion Gap 16.6 Glucose 109 74-106 mg/dL Blood Urea Nitrogen 30.0 7.0-18.0 mg/dL Creatinine 3.40 0.70-1.30 mg/dL Estimated GFR ( Mandie 23 >=60 mL/min/1.73m 2 Estimated GFR (Non- Deepa 19 >=60 mL/min/1.73m 2 BUN Creatinine Ratio 8.8 Calcium 8.1 8.5-10.1 mg/dL Performing Lab: see note - [facility] LB CT abdomen pelvis wo con (No t yet reviewed by provider) Interpretation: Performing Lab: Notes/Report: Source Facility: [place] [address] [address] [address] Scan Report Signed Patient: LUCIANO LEY MR#: [id number] : 1965 Acct:[id number] Age/Sex: 59 / M ADM Date: 12/26/24 Loc: ER Attending Dr: Ordering Physician: Rosa Mcguire Date of Service: 12/26/24 Procedure(s): CT abdomen pelvis wo con Accession Number(s): [id number] cc: Amber Aquino NP [place] [id number] Patient Name: LUCIANO LEY MRN: [id number] date: 1965 Sex: M Assigned Patient Location: ER Current Patient Location: ED.MAIN Accession/Order Number: [id number] Exam Date: 12/26/2024 16:15 Report Date: 12/26/2024 16:21 At the request of: ROSA MCGUIRE NP Procedure: CT abdomen pelvis wo con CT abdomen pelvis wo con 12/26/2024 3:51 PM SIGNS AND SYMPTOMS: Left flank pain, history of kidney stones TECHNIQUE: Multidetector ct axial images of the abdomen and pelvis were obtained without IV contrast. Multiplanar reformats were performed and reviewed to further define anatomy and possible pathology. CT was performed with one or more of the following dose reduction techniques: Automated exposure control, adjustment of the mA and/or kV according to patient size, or use of iterative reconstruction technique. COMPARISON: 01/02/2020 FINDINGS: Lower Chest: There is linear scarring in the left lung base. ABDOMEN: Liver: Within normal limits. Bile Ducts: Normal caliber. Gallbladder: No calcified gallstones. Normal caliber wall. Pancreas: Within normal limits. Spleen: Within normal limits. Adrenals: Within normal limits. Kidneys: Multiple radiodense renal stones are present measuring 6 mm in greatest dimension on the right and 4 mm in greatest dimension on the left. There is no hydronephrosis. Pelvis: Reproductive Organs: No pelvic masses. Ureters: There is a 4 mm stone in the distal left ureter just above the left ureterovesical junction. There is fat stranding along a mildly dilated ureter above this. Bladder: Within normal limits. Bowel: Uncomplicated colonic diverticula are noted. There is a normal appendix in the right lower quadrant. No bowel obstruction. Mesenteric Lymph Nodes: No enlarged mesenteric lymph nodes. Peritoneum: No ascites or free air, no fluid collection. Vessels: within normal limits Retroperitoneum: Within normal limits. Abdominal Wall: Within normal limits. Bones: Degenerative changes are noted in the lumbar spine and sacroiliac joints. CT/CT abdomen pelvis wo con IMPRESSION: No bowel obstruction. There is no hydronephrosis. There is a 4 mm stone in the distal left ureter just above the left ureterovesical junction. There is fat stranding along a mildly dilated ureter above this. Uncomplicated colonic diverticula are noted. Impression dictated by: Phong Pérez M.D. 12/26/2024 4:21 PM Dictation Location: [place] [address] Electronically authenticated by: [id number] Y Date: 12/26/2024 16:21 Dictated By: Phong Pérez M.D. Signed By: 12/26/24 1623 DD/ 1621 TD/TT: Sommelier: Urine Microscopic (Not yet r eviewed by provider) Interpretation: Performing Lab: Notes/Report: [facility] , WBC Urine 0-2 NONE SEEN #/HPF RBC Urine 5-10 0-2 #/HPF Bacteria Urine TRACE NONE SEEN #/HPF Mucus Urine TRACE NONE SEEN Squamous Epithelial Cell Urine RARE NONE/RARE #/LPF Crystals Seen? None Seen None Seen #/HPF Cast Seen? NONE SEEN NONE SEEN #/LPF Urine Culture Indicated NO Performing Lab: see note ML - [facility] LB UA Culture/Micro if Indicate d (Not yet reviewed by provider) Interpretation: Performing Lab: Notes/Report: [facility] , Color Urine LT. YELLOW YELLOW Clarity Urine CLEAR CLEAR Specific [place] Urine 1.010 1.005-1.025 pH Urine 6.0 5.0-9.0 Protein Urine NEGATIVE NEG/TRACE mg/dL Glucose Urine UA NEGATIVE NEGATIVE mg/dL Bilirubin Urine NEGATIVE NEGATIVE Ketones Urine NEGATIVE NEGATIVE mg/dL Blood Urine MODERATE NEGATIVE Nitrite Urine NEGATIVE NEGATIVE Urobilinogen Urine 0.2 0.2-1.0 EU/dL Leukocyte Esterase Urine NEGATIVE NEGATIVE Urine Microscopic Indicated YES Performing Lab: see note ML - [facility] LB Comprehensive Metabolic Pane l (Not yet reviewed by provider) Interpretation: Performing Lab: Notes/Report: [facility] , Sodium 138 136-145 mmol/L Potassium 4.2 3.5-5.1 mmol/L Chloride 101 98-107 mmol/L Carbon Dioxide 23.3 21.0-32.0 mmol/L Anion Gap 17.9 Glucose 114 74-106 mg/dL Blood Urea Nitrogen 24.0 7.0-18.0 mg/dL Creatinine 2.33 0.70-1.30 mg/dL Estimated GFR ( Mandie 35 >=60 mL/min/1.73m 2 Estimated GFR (Non- Deepa 29 >=60 mL/min/1.73m 2 BUN Creatinine Ratio 10.3 Calcium 9.0 8.5-10.1 mg/dL Bilirubin Total 0.3 0.2-1.0 mg/dL Aspartate Amino Transferase 19 15-37 U/L Alanine Aminotransferase 39 16-63 U/L Alkaline Phosphatase 68 46-116 U/L Total Protein 6.9 6.4-8.2 g/dL Albumin Level 3.9 3.4-5.0 g/dL Globulin 3.0 Albumin Globulin Ratio 1.3 Performing Lab: see note ML - [facility] LB Complete Blood Count Auto Di ff (Not yet reviewed by provider) Interpretation: Performing Lab: Notes/Report: [facility] , White Blood Count 14.1 4.0-11.0 10 3/uL Red Blood Count 4.99 4.70-6.10 10 6/uL Hemoglobin 15.0 14.0-18.0 g/dL Hematocrit 44.2 42.0-54.0 % Mean Corpuscular Volume 88.6 80.0-94.0 fL Mean Corpuscular Hemoglobin 30.1 25.9-34.0 pg Mean Corpuscular HGB Conc 33.9 29.9-35.2 g/dL Red Cell Distribution Width 13.1 11.0-15.0 % Platelet Count 259 150-450 10 3/uL Mean Platelet Volume 10.1 9.5-13.5 fL Neutrophils Percent Auto 82.3 43.0-75.0 % Lymphocytes Percent Auto 8.1 20.5-60.0 % Monocytes Percent Auto 7.3 1.7-12.0 % Eosinophils Percent Auto 1.3 0.9-7.0 % Basophils Percent Auto 0.4 0.2-2.0 % Immature Granulocytes Pct Auto 0.6 0.0-0.5 % Neutrophils Absolute Auto 11.6 1.4-6.5 10 3/uL Lymphocytes Absolute Auto 1.2 1.2-3.8 10 3/uL Monocytes Absolute Auto 1.0 0.3-0.8 10 3/uL Eosinophils Absolute Auto 0.2 0.0-0.7 10 3/uL Basophils Absolute Auto 0.1 0.0-0.1 10 3/uL Immature Granulocytes Abs Auto 0.08 0.00-0.03 10 3/uL Performing Lab: see note ML - [facility] Reason For Referral No Information Medications Medication SIG (Take, Route, Frequency, Duration) Notes Start Date End Date Status Multivitamin - 1 tablet Orally Once a day Active Lisinopril 40 MG 1 tablet Orally Once a day for 90 days Active Aspirin 81 MG 1 tablet Orally Once a day Active Pravastatin Sodium 80 MG 1 tablet Orally Once a day for 90 days Active Immunizations Vaccine Route Administration Date Status Comme nts Td (adult), adsorbed-Private OTH Other/Miscellane ous 10/24/1998 Administered Status:Complete ,Reason:Given or N/A Social History Tobacco Use: Social History Observation Description Date Details (start date - stop date) Never Smoker NA - NA Sex Assigned At : Social History Observation Description Sex Assigned At Male Household Question Answer Notes Number of adults in household: 2 Tobacco Use/Smoking Question Answer Notes Tobacco use: nonsmoker patient enter ed data CAGE-AID Questionnaire (2018 Edition) Question Answer Notes Have you ever felt that you ought to cut down on your drinking or drug use? No patient entered data Have people annoyed you by c riticizing your drinking or drug use? No patient entered data Have you ever felt bad or gu ilty about your drinking or drug use? No patient entered data Have you ever had a drink or used drugs first thing in the morning to steady your nerves or to get rid of a hangover? No patient entered data CAGE-AID Score 0 Interpretation Negative PRAPARE Question Answer Notes Date Completed/Updated: 09/28/2024 patie nt entered data What is your current housing situation? I have housing patient entered data Are you worried about losing your housing? No patient entered data What is the highest level of school that you have finished? 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 No How often do you see or talk to people that you care about and feel close to? (For example: talking to friends on the phone, visiting friends or family, going to scientologist or club meetings) More than 5 times a week patient entered data How stressed are you? Stress is when someone feels tense, nervous, anxious, or can't sleep at night because their mind is troubled Somewhat patient entered data In the past year have you sp ent more than 2 nights in a row in a senior living, shelter, [place] [facility] [place] center, or juvenile correctional facility? No patient entered jodi a Are you a refugee? No patient en tered data What country are you from? [place] jama nogueira entered data Do you feel physically and emotionally safe where you currently live? Yes patient entered data In the past year, have you b een afraid of your partner or ex-partner? No patient entered data PRAPARE Score: 1 Problems Problem Type SNOMED Code ICD Code Onset Dates Problem Status W/U Status Risk Notes Problem [id number] Body mass index [BMI] 31.0-31.9, adult (Z68.31) Active confirmed Problem Hypertension (63077573) Hypertension (I10) Active confirmed -CW current regimen as tolerated and effective & ordered labs -refilled medication, f/u in 6 months Problem Hyperlipidemia, unspecified hyperlipidemia type (E78.5) Active confirmed -CW current regimen as tolerated and effective & ordered labs -refilled medication, f/u in 6 months Problem [id number] Stage 3a chronic kidney disease (N18.31) Active confirmed Problem Gout (71731136) Gout (M10.9) Active confirmed Comment:rec ent possible attack., Vital Signs Heart Rate 76 /min 09/28/2024 Venessa Maynard 09/28/2024 03:34:01 PM EDT > Temperature 98.9 degrees Fahrenheit 09/28/2024 Aracely ksenia Venessa 09/28/2024 03:34:01 PM EDT > Respiratory Rate 18 /min 09/28/2024 JasonlexiSatya icielbert 09/28/2024 03:34:01 PM EDT > Blood pressure diastolic 86 mm Hg 09/28/2024 Isaac lunsford Venessa 09/28/2024 03:34:01 PM EDT > Oximetry 95 % 09/28/2024 Jasonlexi Venessa 09/28/2024 03:34:01 PM EDT > Height-cm 166.37 cm 09/28/2024 Caesra Venessa 09/28/2024 03:34:01 PM EDT > Weight-kg 85.82 kg 09/28/2024 Jasonlexi Venessa 09/28/2024 03:34:01 PM EDT > Height 65.50 in 09/28/2024 Jasonlexi Venessa 09/28/2024 03:34:01 PM EDT > Blood pressure systolic 128 mm Hg 09/28/2024 Jasonwhitney mccormack Venessa 09/28/2024 03:34:01 PM EDT > Weight 189.2 lbs 09/28/2024 Jasonlexi Venessa 09/28/2024 03:34:01 PM EDT > BMI 31 kg/m2 09/28/2024 Caesar Venessa 09/28/2024 03:34:01 PM EDT > Encounters Encounter Location Date Provider Diagnosis Main [address] [place], [place] [id number] 03/30/2024 Amber Myerholtz Hypertension I10 ; Hyperlipidemia, unspecified hyperlipidemia type E78.5 ; Gout M10.9 ; BMI 30.0-30.9,adult Z68.30 and Obesity (BMI 30-39.9) E66.9 Main [address] [place], [place] [id number] 09/28/2024 Amber Myerholtz Hypertension I10 ; Hyperlipidemia, unspecified hyperlipidemia type E78.5 ; Gout M10.9 ; Stage 3a chronic kidney disease N18.31 ; Body mass index [BMI] 31.0-31.9, adult Z68.31 and Obesity, class 1 E66.811 [address] [place] [id number] 01/16/2024 Amish Batista Hypertension I10 and Hyperlipidemia, unspecified hyperlipidemia type E78.5 [address] [place] [id number] 04/08/2024 Amber Aquino [address] [place] [id number] 09/09/2024 Amber Aquino Hypertension I10 and Hyperlipidemia, unspecified hyperlipidemia type E78.5 Assessments Encounter Date Diagnosis (ICD Code) Assessment Notes Treatment Notes Treatment Clinical Notes Section Notes 01/16/2024 Hypertension (ICD-10 - I10) -CW current regimen as tolerated and effective & ordered labs -refilled medication, f/u in 6 months 03/30/2024 Hyperlipidemia, unspecified hyperlipidemia type (ICD-10 - E78.5) Pt is stable on current medications. Will continue current medications. F/u 6 months & PRN 09/09/2024 Hypertension (ICD-10 - I10) 03/30/2024 Hypertension (ICD-10 - I10) HTN stable. Will continue current medications. Encouraged healthy diet and exercise. F/u 6 months & PRN 09/28/2024 Hypertension (ICD-10 - I10) HTN stable. Will continue current medications. Encouraged healthy diet and exercise. F/u 6 months & PRN 09/28/2024 Hyperlipidemia, unspecified hyperlipidemia type (ICD-10 - E78.5) Pt is stable on current medications. Will continue current medications. F/u 6 months & PRN 03/30/2024 Gout (ICD-10 - M10.9) Doing well without medication. Will continue to monitor as needed. 09/28/2024 Gout (ICD-10 - M10.9) Doing well without medication. Will continue to monitor as needed. 09/09/2024 Hyperlipidemia, unspecified hyperlipidemia type (ICD-10 - E78.5) 01/16/2024 Hyperlipidemia, unspecified hyperlipidemia type (ICD-10 - E78.5) -CW current regimen as tolerated and effective & ordered labs -refilled medication, f/u in 6 months 03/30/2024 BMI 30.0-30.9,adult (ICD-10 - Z68.30) Body Mass Index: Care Instructions material was published 09/28/2024 Stage 3a chronic kidney disease (ICD-10 - N18.31) Pt to continue to f/u with Nephrology 03/30/2024 Obesity (BMI 30-39.9) (ICD-10 - E66.9) 09/28/2024 Body mass index [BMI] 31.0-31.9, adult (ICD-10 - Z68.31) Body Mass Index: Care Instructions material was published 09/28/2024 Obesity, class 1 (ICD-10 - E66.811) Plan Of Treatment Pending Test Test Name Order Date Basic Metabolic Panel 12/27/2024 Complete Blood Count Auto Diff Complete Blood Count Auto Diff Creatine Kinase 12/27/2024 Comprehensive Metabolic Panel 12/26/2024 UA Culture/Micro if Indicated 12/26/2024 Urine Microscopic 12/26/2024 CT abdomen pelvis wo con 12/26/2024 Next Appt Details Provider Name:Amber luna, 03/29/2025 03:30:00 PM, [address] [place], [place], [id number], Insurance Providers Payer Name Payer Address Payer Phone Subscriber Number Group Number Insured Name Patient Relationship to Insured Coverage Start Date Coverage End Date [employer] [address] [place], [place] [id number] Luciano Ley Self - patient is the insured 3 3 [employer] [address] [address] [place], [place] [phone] [id number] Luciano Ley Self - patient is the insured Medical (General) History Medical History History ICD Code Essential (primary) hypertension Hyperlipidemia Renal insufficiency Surgical History Surgery Date(Month/Year) Tonsillectomy and adenoidectomy
== END 2024-12-27 11:26 | disposition short-term general hospital (02) | DRG 683 ==
LOC: ER 17:58 → MS 12-27 09:04
PROVIDERS: Nurse Practitioner; Admitting Provider Internal Medicine; Emergency Provider Emergency Medicine; PCP Nurse Practitioner Family; Visit Provider Internal Medicine
DX: N17.9 Acute kidney failure, unspecified (principal); N13.4 Hydroureter; N20.1 Calculus of ureter; I12.9 Hypertensive chronic kidney disease with stage 1 through stage 4 chronic kidney disease, or unspecified chronic kidney disease; N18.30 Chronic kidney disease, stage 3 unspecified; E78.5 Hyperlipidemia, unspecified; Z79.899 Other long term (current) drug therapy; Z87.442 Personal history of urinary calculi; T46.4X5A Adverse effect of angiotensin-converting-enzyme inhibitors, initial encounter
CPT/HCPCS: 36415; 74176; 80048; 80053; 81001; 82550; 85025; 96360; 99285